=== PATIENT | female | born 1990 | race Two or more races ===

== ENCOUNTER 2021-02-25 10:55 | Emergency (ER) | payer OTHER ==
[~2021-02-25] VITALS: Ht 162.6 cm; Wt 107.0 kg
[2021-02-25 11:19] VITALS: BP 140/83
== END 2021-02-25 11:55 | disposition home or self-care (01) ==
LOC: ER 10:55
DX: T63.441A Toxic effect of venom of bees, accidental (unintentional), initial encounter (principal); L23.9 Allergic contact dermatitis, unspecified cause; Y92.89 Other specified places as the place of occurrence of the external cause